=== PATIENT | female | born 1990 | race Two or more races ===

== ENCOUNTER 2018-01-15 16:07 | Emergency (ER) | payer MEDICAID ==
[~2018-01-15] VITALS: Ht 162.6 cm; Wt 65.8 kg
[2018-01-15 16:07] VITALS: BP 122/68
== END 2018-01-15 16:44 | disposition home or self-care (01) ==
LOC: ER 16:10
DX: J06.9 Acute upper respiratory infection, unspecified (principal); Z60.2 Problems related to living alone
CPT/HCPCS: 71045-TC; A4606; Z7610

== ENCOUNTER 2018-01-26 16:38 | Emergency (ER) | payer MEDICAID ==
[~2018-01-26] VITALS: Ht 165.1 cm; Wt 65.8 kg
[2018-01-26 16:55] VITALS: BP 112/68
[2018-01-26] MEDS ORDERED: IBUPROFEN 600 MG TABLET PO ONE ×3 (17:30→17:36)
[2018-01-26] MEDS ORDERED: ACETAMINOPHEN 325 MG TABLET PO ONE (17:30)
[2018-01-26] MEDS ORDERED: PHENAZOPYRIDINE HCL 200 MG TABLET PO ONE (17:30)
[2018-01-26] MEDS ORDERED: PHENAZOPYRIDINE HCL 200 MG TABLET ONE ×2 (17:32→17:37)
[2018-01-26] MEDS ORDERED: ACETAMINOPHEN ES 500 MG TABLET ONE ×2 (17:32→17:36)
--- NOTE | 2018-01-26 17:38 | NUR ---
URINE COLLECTED AND SENT TO LAB
[2018-01-26 17:46] LABS: APPEARANCE,URINE Clear (CLEAR); BILIRUBIN,URINE Negative (NEGATIVE); BLOOD, URINE Trace-intact Ery/uL (NEGATIVE); COLOR,URINE Yellow (YELLOW); KETONES,URINE 40 (NEGATIVE); LEUKOCYTE ESTERASE ,URINE Trace (NEGATIVE); NITRITE, URINE Negative (NEGATIVE); PROTEIN,URINE 30 mg/dl (NEGATIVE); UGLUCOSE Negative (NEGATIVE)
[2018-01-26 17:47] LABS: PH,URINE >9.0 (5.0-8.0)
[2018-01-26 18:06] LABS: BACTERIA,URINE 2+ /HPF (None Seen); SQUAMOUS EPITHELIAL CELL,UR Few /HPF (None Seen)
== END 2018-01-26 19:31 | disposition home or self-care (01) ==
LOC: ER 16:45
DX: N12 Tubulo-interstitial nephritis, not specified as acute or chronic (principal); J06.9 Acute upper respiratory infection, unspecified; J02.9 Acute pharyngitis, unspecified; Z60.2 Problems related to living alone
CPT/HCPCS: 71045-TC; 81000-TC; 84703-TC; 86403-TC; 87070-TC; 87086-TC; 87186-TC

== ENCOUNTER 2019-01-27 18:34 | Emergency (ER) | payer MEDICAID ==
[~2019-01-27] VITALS: Ht 162.6 cm; Wt 70.3 kg
[2019-01-27 18:34] VITALS: BP 123/65
[2019-01-27 19:01] LABS: APPEARANCE,URINE Slightly Cloudy (CLEAR); BILIRUBIN,URINE Negative (NEGATIVE); BLOOD, URINE Trace-intact Ery/uL (NEGATIVE); COLOR,URINE Yellow (YELLOW); KETONES,URINE Negative (NEGATIVE); LEUKOCYTE ESTERASE ,URINE Moderate (NEGATIVE); NITRITE, URINE Negative (NEGATIVE); PH,URINE 7.5 (5.0-8.0); PROTEIN,URINE Negative (NEGATIVE); UGLUCOSE Negative (NEGATIVE); UROBILINOGEN,URINE 0.2 EU/dL (0.2)
[2019-01-27 20:25] LABS: RBC,URINE 2-3/HPF /HPF (0-2)
[2019-01-27 20:26] LABS: BACTERIA,URINE Moderate /HPF (None Seen); SQUAMOUS EPITHELIAL CELL,UR Few /HPF (None Seen); URINE AMORPHOUS PHOSPHATES Moderate /HPF (None Seen)
== END 2019-01-27 19:37 | disposition home or self-care (01) ==
LOC: ER 18:34
DX: N39.0 Urinary tract infection, site not specified (principal); Z60.2 Problems related to living alone
CPT/HCPCS: 81000-TC; 84703-TC; 87086-TC; 87186-TC

== ENCOUNTER 2022-07-05 13:01 | Emergency (ER) | payer MEDICAID ==
[~2022-07-05] VITALS: Ht 167.6 cm; Wt 77.1 kg
--- NOTE | 2022-07-05 13:35 | NUR ---
RECEIVED PT 32 YRS FEMALE WALKING IN C/O bilateral fack pain and lower abdominal pain and back pain UA SENT TO LAB
--- NOTE | 2022-07-05 14:05 | NUR ---
Seen by DR. LOVELCAE
[2022-07-05 14:09] LABS: BILIRUBIN,URINE NEGATIVE (NEGATIVE); COLOR,URINE YELLOW (YELLOW); LEUKOCYTE ESTERASE ,URINE 2+ (NEGATIVE); NITRITE, URINE NEGATIVE (NEGATIVE); PROTEIN,URINE NEGATIVE (NEGATIVE); UGLUCOSE NEGATIVE (NEGATIVE); UROBILINOGEN,URINE 0.2 EU/dL (0.2)
[2022-07-05] MEDS ORDERED: KETOROLAC TROMETHAMINE INJ 30 MG/ML VIAL IV ONE (14:30)
--- NOTE | 2022-07-05 14:30 | NUR ---
blood drow by lab tach
[2022-07-05] MEDS ORDERED: KETOROLAC TROMETHAMINE 15 MG/ML VIAL ONE (14:45)
[2022-07-05 14:55] LABS: BASOPHILS % (AUTO) 0.2 % (0.0-2.0); HEMATOCRIT 41 % (33-45); HEMOGLOBIN 13.2 g/dL (11.5-14.8); LYMPHOCYTES # (AUTO) 1.8 K/uL (0.8-4.8); LYMPHOCYTES % (AUTO) 16.1 % (20.0-44.0); MEAN CORPUSCULAR HGB CONC 33 g/dl (31.0-36.0); MEAN CORPUSCULAR VOLUME 87 fL (82-100); MONOCYTES # (AUTO) 0.8 K/uL (0.1-1.30); MONOCYTES % (AUTO) 6.8 % (2.0-12.0); NEUTROPHILS # (AUTO) 8.5 K/uL (1.8-8.9); NEUTROPHILS % (AUTO) 75.9 % (43.0-81.0); PLATELET COUNT (AUTO) 326 K/uL (150-450); RED BLOOD CELL COUNT(AUTO) 4.69 MIL/uL (4.0-5.2); WHITE BLOOD COUNT (AUTO) 11.2 K/uL (4.3-11.0)
--- NOTE | 2022-07-05 15:00 | NUR ---
to ct scan of abdomin
[2022-07-05 15:17] LABS: CALCIUM, SERUM 8.8 mg/dL (8.5-10.1); CREATININE 0.7 mg/dL (0.6-1.3); POTASSIUM 3.8 mmol/L (3.5-5.1)
[2022-07-05 15:18] LABS: BACTERIA,URINE 1+ /HPF (None Seen); RBC,URINE 21-50 /HPF (0-2); SQUAMOUS EPITHELIAL CELL,UR 0-2 /HPF (None Seen); WBC,URINE 21-50 /HPF (0-3)
[2022-07-05 15:22] LABS: ALBUMIN 3.4 g/dL (3.4-5.0); BILIRUBIN,DIRECT 0.1 mg/dL (0.0-0.2); BILIRUBIN,TOTAL 0.3 mg/dL (0.2-1.0); TOTAL PROTEIN, SERUM 6.9 g/dL (6.4-8.2)
[2022-07-05] MEDS ORDERED: NITR100C6 PO (15:39)
--- NOTE | 2022-07-05 15:45 | NUR ---
MACROBIDE 100 MG PO GIVEN
[2022-07-05] MEDS ORDERED: NITROFURANTOIN/MONOHYDRATE MACROCRYSTALS 100 MG CAPSULE ONE (15:49)
[2022-07-05] MEDS ORDERED: NITROFURANTOIN/MONOHYDRATE MACROCRYSTALS 100 MG CAPSULE PO ONE (16:00)
--- NOTE | 2022-07-05 16:00 | NUR ---
IV removed. Catheter intact and site benign. Pressure and 4x4 applied to site. No bleeding noted.
--- NOTE | 2022-07-05 16:02 | NUR ---
Patient discharged to home in stable condition. Written and verbal after care instructions given. Patient verbalizes understanding of instruction.
[2022-07-05 16:06] VITALS: BP 124/84
== END 2022-07-05 16:07 | disposition home or self-care (01) ==
LOC: ER 13:25
DX: N39.0 Urinary tract infection, site not specified (principal)
CPT/HCPCS: 99285; 74176; 96372; 85025; 80048; 87086; 80076; 84703; 81001; 36415; 84702; J1885

== ENCOUNTER 2022-08-04 22:05 | Emergency (ER) | payer MEDICAID ==
[~2022-08-04] VITALS: Ht 167.6 cm; Wt 81.6 kg
[~2022-08-04 22:05] MED LIST: NITR100C6 PO
--- NOTE | 2022-08-04 22:40 | NUR ---
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
--- NOTE | 2022-08-04 22:46 | NUR ---
URINE COLLECTED AND SENT TO LAB
[2022-08-04] MEDS ORDERED: predniSONE 20 MG TABLET ONE (22:59)
[2022-08-04] MEDS ORDERED: EPINEPHRINE (1:1000) 1 MG/ML AMPUL ONE (22:59)
[2022-08-04] MEDS ORDERED: predniSONE 50 MG TABLET PO ONE (23:00)
[2022-08-04] MEDS ORDERED: ASPIRIN 81 MG TAB.CHEW PO ONE (23:00)
[2022-08-04] MEDS ORDERED: ASPIRIN 81 MG TAB.CHEW ONE (23:00)
[2022-08-04] MEDS ORDERED: FAMOTIDINE (20 MG) 20 MG TABLET ONE (23:00)
[2022-08-04] MEDS ORDERED: EPINEPHRINE (1:1000) 1 MG/ML AMPUL SUBCUT ONE (23:00)
[2022-08-04] MEDS ORDERED: diphenhydrAMINE HCL 50 MG CAPSULE PO ONE (23:00)
[2022-08-04] MEDS ORDERED: FAMOTIDINE (20 MG) 20 MG TABLET PO ONE (23:00)
[2022-08-04] MEDS ORDERED: diphenhydrAMINE HCL 50 MG CAPSULE ONE (23:00)
--- NOTE | 2022-08-04 23:03 | NUR ---
SALINE LOCK ESTABLISHED, BLOOD DRAWN AND SENT TO LAB
[2022-08-04 23:32] LABS: BASOPHILS % (AUTO) 0.3 % (0.0-2.0); EOSINOPHILS % (AUTO) 2.4 % (0.0-6.0); HEMATOCRIT 43 % (33-45); HEMOGLOBIN 14.4 g/dL (11.5-14.8); LYMPHOCYTES # (AUTO) 2.6 K/uL (0.8-4.8); LYMPHOCYTES % (AUTO) 28.9 % (20.0-44.0); MEAN CORPUSCULAR HGB CONC 33 g/dl (31.0-36.0); MEAN CORPUSCULAR VOLUME 84 fL (82-100); MONOCYTES % (AUTO) 10.8 % (2.0-12.0); NEUTROPHILS # (AUTO) 5.3 K/uL (1.8-8.9); NEUTROPHILS % (AUTO) 57.6 % (43.0-81.0); PLATELET COUNT (AUTO) 373 K/uL (150-450); RED BLOOD CELL COUNT(AUTO) 5.11 MIL/uL (4.0-5.2); WHITE BLOOD COUNT (AUTO) 9.1 K/uL (4.3-11.0)
[2022-08-04 23:45] LABS: CALCIUM, SERUM 8.9 mg/dL (8.5-10.1); CARBON DIOXIDE 26 mmol/L (21-32); CHLORIDE 105 mmol/L (98-107); CREATININE 0.7 mg/dL (0.6-1.3); GLUCOSE 112 mg/dL (74-106); POTASSIUM 3.8 mmol/L (3.5-5.1); SODIUM SERUM 139 mmol/L (136-145); UREA NITROGEN, BLOOD 9 mg/dL (7-18)
[2022-08-05] LABS: ALANINE AMINOTRANSFERASE 178 U/L (12-78); ALBUMIN 3.6 g/dL (3.4-5.0); ALKALINE PHOSPHATASE 95 U/L (46-116); ASPARTATE AMINOTRANSFERASE 67 U/L (15-37); BILIRUBIN,DIRECT 0.1 mg/dL (0.0-0.2); BILIRUBIN,TOTAL 0.3 mg/dL (0.2-1.0); TOTAL PROTEIN, SERUM 7.4 g/dL (6.4-8.2)
[2022-08-05] MEDS ORDERED: PRED20TA PO (04:01)
[2022-08-05] MEDS ORDERED: DIPH25TA25 PO (04:01)
--- NOTE | 2022-08-05 04:32 | NUR ---
Patient discharged to home in stable condition. Written and verbal after care instructions given. Patient verbalizes understanding of instruction. IV removed. Catheter intact and site benign. Pressure and 4x4 applied to site. No bleeding noted.
[2022-08-05 04:34] VITALS: BP 115/61
== END 2022-08-05 04:34 | disposition home or self-care (01) ==
LOC: ER 22:07
DX: L50.9 Urticaria, unspecified (principal); R07.89 Other chest pain; Z60.2 Problems related to living alone; Z79.899 Other long term (current) drug therapy
CPT/HCPCS: 99285; 71045; 96372; 93005; 85025; 80048; 80076; 36415 ×2; 84484 ×2; 83880; 84702; Q0163; J0171; J7512

== ENCOUNTER 2024-05-09 22:22 | Emergency (ER) | payer MEDICAID, OTHER ==
[~2024-05-09] VITALS: Ht 162.6 cm; Wt 84.4 kg
[~2024-05-09 22:22] MED LIST changes: +DIPH25TA25 PO; +PRED20TA PO
[2024-05-09 23:20] VITALS: BP 152/67; TEMP 97.9; O2SAT 100
[2024-05-10] MEDS ORDERED: METH-647 PO (00:05)
[2024-05-10] MEDS ORDERED: IBUP-1490 PO (00:05)
[2024-05-10] MEDS ORDERED: KETOROLAC TROMETHAMINE INJ 30 MG/ML VIAL ONE (00:11)
[2024-05-10] MEDS: KETOROLAC TROMETHAMINE INJ 30 MG/ML VIAL IM ONE (00:12)
== END 2024-05-10 00:17 | disposition home or self-care (01) ==
LOC: ER 22:26
DX: M62.838 Other muscle spasm (principal); M54.2 Cervicalgia; Z79.52 Long term (current) use of systemic steroids; Z79.899 Other long term (current) drug therapy; Z60.2 Problems related to living alone
CPT/HCPCS: 99283; 96372; J1885